=== PATIENT | female | born 1990 | race Caucasian/White ===

== ENCOUNTER 2022-12-12 19:13 | Emergency (ER) | payer OTHER ==
[2022-12-12] MEDS ORDERED: Bupivacaine 0.5% 10 ML VIAL ONE ×2 (19:53→19:58)
[2022-12-12] MEDS ORDERED: cefTRIAXone (ROCEPHIN) 500 MG VIAL ONE (20:12)
[2022-12-12] MEDS ORDERED: Azithromycin 250 MG TAB ONE (20:12)
[2022-12-12] MEDS ORDERED: Lidocaine 1% (PF) 30 ML VIAL ONE (20:16)
[2022-12-12 20:22] LABS: Bilirubin Negative (Negative); Blood, Urine Trace (Negative); Clarity Clear (Clear); Glucose, Urine (Dipstick) Negative (Negative); Ketone, Urine Negative (Negative); Leukocyte Trace (Negative); Nitrite Negative (Negative); Protein, Urine (Dipstick) Negative (Neg-Trace); Urobilinogen 0.2 mg/dL (Less than 2); pH, Urine 5.5 (5.0-9.0)
[2022-12-12] MEDS ORDERED: Penicillin V Potassium 250 MG TAB ONE (20:24)
[2022-12-12 20:31] LABS: Specific Gravity, Urine Greater/Equal 1.030 (1.005-1.030)
[2022-12-12 20:38] LABS: Bacteria/HPF 2+ HPF (None Seen); CAUTI Indications for Culture Fever or rigors; RBC/HPF 0-3 HPF (0-3)
[2022-12-12 20:40] LABS: Urine Culture Reflex No No
[2022-12-12 20:45] LABS: Pregnancy Test - Urine (BHCG) Negative (Negative); Pregu Control Background? CLEAR/WHITE (CLR/WHITE); Pregu Control Bar Appear? YES (CONTROL BAR); Specific Gravity 1.024 (1.002-1.036)
[2022-12-12] MEDS ORDERED: Clindamycin 150 MG CAP ONE (20:52)
== END 2022-12-12 20:59 | disposition home or self-care (01) ==
LOC: BURERS 19:13
DX: N72 Inflammatory disease of cervix uteri (principal); K08.89 Other specified disorders of teeth and supporting structures
CPT/HCPCS: 81001; 81025; 96372; 99283; J0696; J2001; J3490